=== PATIENT | female | born 1955 | race Caucasian/White ===

== ENCOUNTER 2017-05-03 00:20 | Inpatient (IN) | payer BC ==
[2017-05-03] VITALS (20 sets, daily range): BP systolic 99–127; BP diastolic 46–76
[~2017-05-03] VITALS: Ht 177.8 cm; Wt 83.6 kg
[~2017-05-03 00:20] MED LIST: ASPIR-LOW81 MG PO; CARVEDILOL3.125 MG PO; NOHOMEMEDS; PANTOPRAZOLE SO40 MG PO; VALSARTAN-HCTZ1 EACH PO
[2017-05-03 01:15] LABS: BASOPHIL COUNT 0.1 K/uL (0-0.1); EOSINOPHIL (%) 0.8 % (0-5); EOSINOPHIL COUNT 0.1 K/uL (0-0.3); HEMATOCRIT 44.4 % (36.0-46.0); IMMATURE GRANULOCYTE (%) 0.4 % (0.0-0.7); IMMATURE GRANULOCYTE COUNT 0.1 K/uL; INSTRUMENT ABS NEUTROPHIL CT 11.8 K/uL; LYMPHOCYTE COUNT 1.8 K/uL (1.0-2.8); MCH 26.7 PG (29.0-34.0); MCV 83.6 FL (83-99); MEAN PLAT.VOLUME 13.5 uM^3 (9.5-12.4); MONOCYTE (%) 2.1 % (3-12); MONOCYTE COUNT 0.3 K/uL (0-0.8); NEUTROPHIL (%) 83.4 % (45-76); NEUTROPHIL COUNT 11.8 K/uL (1.8-6.4); PLATELET COUNT 231 K/uL (156-360); RBC DIS.WIDTH-CV 13.2 % (11.8-14.6); RBC DIS.WIDTH-SD 40.4 % (39-53); RED BLOOD COUNT 5.31 M/uL (3.80-5.20); WHITE BLOOD COUNT 14.1 K/uL (4.1-10.2)
[2017-05-03 01:28] LABS: CHLORIDE 111 mEq/L (99-109); POTASSIUM 3.2 mEq/L (3.7-5.4); SODIUM 142 mEq/L (136-147)
[2017-05-03 01:30] LABS: GLUCOSE 234 mg/dL (70-99)
[2017-05-03 01:31] LABS: ANION GAP 11 MEQ/L (2-14)
[2017-05-03 01:33] LABS: GFR ESTIMATE (CALCULATED) > 59 mL/min/
[2017-05-03 01:34] LABS: UREA NITROGEN (BUN) 22 mg/dL (9-23)
[2017-05-03 01:36] LABS: CREATINE KINASE 225 IU/L (1-294)
[2017-05-03 01:37] LABS: TROP-I INTERPRETATION NEGATIVE; TROPONIN-I < 0.01 ng/mL (0.0-0.30)
[2017-05-03 08:42] LABS: METH RESISTANT S AUREUS PCR NEGATIVE (NEGATIVE)
[2017-05-03 08:43] LABS: PROBE CHECK PASS; SPECIMEN PROCESSING CONTROL PASS
[2017-05-03 12:29] LABS: TROP-I INTERPRETATION NEGATIVE; TROPONIN-I 0.03 ng/mL (0.0-0.30)
[2017-05-03 12:30] LABS: ANION GAP 10 MEQ/L (2-14); CHLORIDE 106 MEQ/L (99-109); GFR ESTIMATE (CALCULATED) > 59 mL/min/; GLUCOSE 159 mg/dL (70-99); POTASSIUM 3.6 MEQ/L (3.7-5.4); SAMPLE HEMOLYSIS CHECK 0; SAMPLE ICTERIC CHECK 0; SAMPLE LIPEMIA CHECK 0; SODIUM 142 MEQ/L (136-147); UREA NITROGEN (BUN) 21 mg/dL (9-23)
[2017-05-04] VITALS (15 sets, daily range): BP systolic 95–130; BP diastolic 44–76
[2017-05-04 05:53] LABS: BASE EXCESS 2.9 mEq/L (-3 to +3); BICARBONATE 27.9 mEq/L (22-26); CARBOXY HGB 1.9 % (0-5); METHEMOGLOBIN 1.5 % (0-1.5); PCO2 43 mm Hg (35-45); PO2 113 mm Hg (80-100); pH 7.42 (7.35-7.45)
[2017-05-04 05:54] LABS: COMMENTS - BLOOD GASES C+A+; DEVICE HHFNC; FI02 70 %; O2 FLOW 30 L/MIN; SITE LR; TOTAL RESP RATE 18 resp/min
[2017-05-04 06:15] LABS: HEMATOCRIT 40.6 % (36.0-46.0); MCH 27.7 PG (29.0-34.0); MCV 83.9 FL (83-99); MEAN PLAT.VOLUME 13.7 uM^3 (9.5-12.4); PLATELET COUNT 223 K/uL (156-360); RBC DIS.WIDTH-CV 13.6 % (11.8-14.6); RBC DIS.WIDTH-SD 41.6 % (39-53); RED BLOOD COUNT 4.84 M/uL (3.80-5.20); WHITE BLOOD COUNT 14.4 K/uL (4.1-10.2)
[2017-05-04 06:40] LABS: ANION GAP 10 MEQ/L (2-14); CHLORIDE 107 MEQ/L (99-109); GFR ESTIMATE (CALCULATED) > 59 mL/min/; POTASSIUM 4.2 MEQ/L (3.7-5.4); SAMPLE HEMOLYSIS CHECK 0; SAMPLE ICTERIC CHECK 0; SAMPLE LIPEMIA CHECK 0; SODIUM 142 MEQ/L (136-147)
[2017-05-04 06:47] LABS: GLUCOSE 111 mg/dL (70-99); UREA NITROGEN (BUN) 33 mg/dL (9-23)
[2017-05-05 03:45] VITALS: BP 103/58
[2017-05-05 07:14] VITALS: BP 109/64
[2017-05-05 11:51] VITALS: BP 93/59
[2017-05-05 15:28] VITALS: BP 93/63
[2017-05-05 20:00] VITALS: BP 123/69
[2017-05-05 23:55] VITALS: BP 97/57
[2017-05-06 04:00] VITALS: BP 92/54
[2017-05-06 08:00] VITALS: BP 110/62
[2017-05-06 09:50] LABS: ANION GAP 10 MEQ/L (2-14); CHLORIDE 102 MEQ/L (99-109); GFR ESTIMATE (CALCULATED) > 59 mL/min/; GLUCOSE 104 mg/dL (70-99); POTASSIUM 4.2 MEQ/L (3.7-5.4); SAMPLE HEMOLYSIS CHECK 0; SAMPLE ICTERIC CHECK 0; SAMPLE LIPEMIA CHECK 0; SODIUM 136 MEQ/L (136-147); UREA NITROGEN (BUN) 31 mg/dL (9-23)
[2017-05-06] MEDS ORDERED: CARVEDILOL3.125 MG PO (11:17)
[2017-05-06] MEDS ORDERED: SPIRONOLACTONE25 MG PO (11:18)
[2017-05-06] MEDS ORDERED: ASPIR-LOW81 MG PO (11:18)
[2017-05-06] MEDS ORDERED: ENTRESTO 24 MG1 EACH PO (11:18)
[2017-05-06] MEDS ORDERED: LASIX40 MG PO (11:18)
== END 2017-05-06 12:56 | disposition home or self-care (01) | DRG 291 ==
LOC: EME → EDBD 00:20 → EME 00:20 → EDOF 02:45 → 4WEST 02:45 → 4EAST 02:45 → 4WEST 05:36 → 4EAST 05-04 20:04
PROVIDERS: Emergency Medicine; Internal Medicine Cardiovascular Disease; Internal Medicine Critical Care Medicine; Obstetrics & Gynecology
DX: I11.0 Hypertensive heart disease with heart failure (principal); J96.01 Acute respiratory failure with hypoxia; I50.21 Acute systolic (congestive) heart failure; I42.9 Cardiomyopathy, unspecified; I44.7 Left bundle-branch block, unspecified; J98.11 Atelectasis; K21.9 Gastro-esophageal reflux disease without esophagitis; Z79.82 Long term (current) use of aspirin; Z79.899 Other long term (current) drug therapy; Z82.49 Family history of ischemic heart disease and other diseases of the circulatory system; Z91.19 Patient's noncompliance with other medical treatment and regimen; R07.89 Other chest pain; R94.31 Abnormal electrocardiogram [ECG] [EKG]; R00.0 Tachycardia, unspecified
CPT/HCPCS: 36600; 71010; 80048; 80048 91; 82550; 82803; 83880; 84484; 85025; 85027; 87641; 93005; 93306; 94002; 94760; 94799; 99281; 99285; J1650; J1940; J2060; J3480